=== PATIENT | female | born 2000 | race Caucasian/White ===

== ENCOUNTER 2020-10-12 10:07 | Day surgery (SDC) | payer OTHER ==
[~2020-10-12] VITALS: Ht 167.6 cm; Wt 73.9 kg
[~2020-10-12 10:07] MED LIST: NS 1,000 ML IV ONE; OMEP1CAP73 PO
[2020-10-12] MEDS ORDERED: propofoL 200 MG/20 ML VIAL As Ordered ONE ×2 (10:59→11:52)
[2020-10-12] MEDS ORDERED: LIDOCAINE 2% 100MG/5ML SDV (FOR ANES.) As Ordered ONE (10:59)
[2020-10-12] MEDS ORDERED: fentaNYL 100 MCG/2 ML INJECTION (J3010) As Ordered ONE (10:59)
--- NOTE | 2020-10-12 12:00 | ROOR ---
Patient Name: Shreya Martinez Procedure Date: 10/12/2020 11:48 AM Date of : 2000 Age: 20 Room: [facility] Gender: Female Note Status: Finalized Procedure: Upper Endoscopy + Biopsies Indications: Abdominal pain in the right upper quadrant, Nausea Providers: Mack Tillman MD Referring MD: Malu Vines Requestsonali Provider: Medicines: Monitored Anesthesia Care Complications: No immediate complications. Procedure: Pre-Anesthesia Assessment: - The heart rate, respiratory rate, oxygen saturations, blood pressure, adequacy of pulmonary ventilation, and response to care were monitored throughout the procedure. The Endoscope was introduced through the mouth, and advanced to the second part of duodenum. The upper GI endoscopy was accomplished without difficulty. The patient tolerated the procedure well. Findings: The Z-line was regular and was found 40 cm from the incisors. Multiple biopsies were obtained with cold forceps for evaluation to rule out Rodriguez's Esophagus randomly at the gastroesophageal junction. No other significant abnormalities were identified in a careful examination of the stomach. Biopsies were taken with a cold forceps in the gastric antrum for Helicobacter pylori testing. The exam of the duodenum was otherwise normal. Impression: - Z-line regular, 40 cm from the incisors. - Multiple biopsies were obtained at the gastroesophageal junction. - Biopsies were taken with a cold forceps for Helicobacter pylori testing. - The examination was otherwise normal. Recommendation: - Patient has a contact number available for emergencies. The signs and symptoms of potential delayed complications were discussed with the patient. Return to normal activities tomorrow. Written discharge instructions were provided to the patient. - High fiber diet. - Discharge patient to home. - Follow an antireflux regimen. - Continue present medications. - Await pathology results. - Telephone GI clinic for pathology results in 1 week. - Return to referring physician. - The findings and recommendations were discussed with the patient. Procedure Code(s): --- Professional --- 47846, Esophagogastroduodenoscopy, flexible, transoral; with biopsy, single or multiple Diagnosis Code(s): --- Professional --- R10.11, Right upper quadrant pain R11.0, Nausea CPT copyright 2019 [employer]. All rights reserved. The codes documented in this report are preliminary and upon email specialist review may be revised to meet current compliance requirements. Mack Tillman MD Mack Tillman MD 10/12/2020 12:00:16 PM Electronically signed by Mack Tillman MD Number of Addenda: 0 Note Initiated On: 10/12/2020 11:48 AM Estimated Blood Loss: Estimated blood loss: none.
[2020-10-12 12:22] VITALS: BP 115/68
== END 2020-10-12 12:24 | disposition home or self-care (01) ==
LOC: M OPP 10:07
PROVIDERS: ATTEND Internal Medicine Gastroenterology
DX: K29.70 Gastritis, unspecified, without bleeding (principal); K20.90 Esophagitis, unspecified without bleeding; K21.9 Gastro-esophageal reflux disease without esophagitis; R10.11 Right upper quadrant pain; R11.0 Nausea; Z91.030 Bee allergy status
CPT/HCPCS: 43239; 88305; J3010

== ENCOUNTER → 2022-12-06 | Outpatient (REF) | payer OTHER ==
[~2022-12-06] MED LIST changes: -NS 1,000 ML IV ONE
== END ==
LOC: M PLALAB 14:15
PROVIDERS: ATTEND Nurse Practitioner Family
DX: Z12.4 Encounter for screening for malignant neoplasm of cervix (principal)

== ENCOUNTER → 2023-12-09 | Outpatient (REF) | payer OTHER | LOC: M SFHCWAGY 17:20 | PROVIDERS: ATTEND Nurse Practitioner Family | DX: Z12.4 Encounter for screening for malignant neoplasm of cervix (principal) ==

== ENCOUNTER 2024-11-17 16:05 | Emergency (ER) | payer OTHER ==
[~2024-11-17] VITALS: Ht 170.2 cm; Wt 77.7 kg
[2024-11-17 17:21] LABS: BASO # 0.1 10^3/uL (0.0-0.2); EOS # 0.4 10^3/uL (0.0-0.5); EOS % 4.6 % (0.0-3.0); HEMATOCRIT 34.2 % (36.0-47.0); HEMOGLOBIN 11.7 g/dl (12.0-15.5); LYMPH # 3.3 10^3/uL (1.5-5.0); LYMPH % 35.7 % (24.0-44.0); MEAN CORPUSCULAR HEMOGLOBIN 28.7 pg (27.0-33.0); MEAN CORPUSCULAR HGB CONC 34.2 g/dl (32.0-36.5); MEAN CORPUSCULAR VOLUME 83.8 fl (80.0-96.0); MONO # 0.6 10^3/uL (0.0-0.8); MONO % 6.8 % (2.0-8.0); NEUTROPHILS # 4.7 10^3/uL (1.5-8.5); NEUTROPHILS % 51.6 % (36.0-66.0); PLATELET COUNT, AUTOMATED 311 10^3/uL (150-450); RED BLOOD COUNT 4.08 10^6/uL (4.00-5.40); WHITE BLOOD COUNT 9.2 10^3/uL (4.0-10.0)
[2024-11-17 17:44] LABS: LIPASE 26 U/L (12-53)
[2024-11-17 17:46] LABS: ALBUMIN 4.1 G/DL (3.2-5.2); ALKALINE PHOSPHATASE 72 U/L (35-104); ALT/SGPT 14 U/L (7.0-40); AST/SGOT 12 U/L (<34); BILIRUBIN,DIRECT 0.1 MG/DL (<0.4); BILIRUBIN,TOTAL 0.3 MG/DL (0.3-1.2); BLOOD UREA NITROGEN 10 MG/DL (9-23); CARBON DIOXIDE LEVEL 30 MMOL/L (20-31); CHLORIDE LEVEL 105 MMOL/L (98-107); CREATININE FOR GFR 0.64 MG/DL (0.55-1.30); GLOMERULAR FILTRATION RATE > 60.0 (>60); GLUCOSE, FASTING 88 MG/DL (60-100); POTASSIUM SERUM 3.7 MMOL/L (3.5-5.1); SODIUM LEVEL 140 MMOL/L (136-145); TOTAL PROTEIN 7.5 G/DL (5.7-8.2)
[2024-11-17 19:36] VITALS: BP 144/76; TEMP 97.2; O2SAT 99
[2024-11-17 19:58] LABS: APPEARANCE, URINE CLEAR (CLEAR); BACTERIA, URINE AUTO 1+ (NEGATIVE); BILIRUBIN, URINE AUTO NEGATIVE (NEGATIVE); BLOOD, URINE BLOOD NEGATIVE (NEGATIVE); COLOR, URINE YELLOW (YELLOW); GLUCOSE, URINE (UA) AUTO NEGATIVE (NEGATIVE); KETONE, URINE AUTO TRACE mg/dL (NEGATIVE); LEUKOCYTE ESTERASE, URINE AUTO NEGATIVE (NEGATIVE); NITRITE, URINE AUTO NEGATIVE (NEGATIVE); PROTEIN, URINE AUTO NEGATIVE (NEGATIVE); RBC, URINE AUTO 0 /HPF (0-3); SPECIFIC GRAVITY URINE AUTO 1.011 (1.002-1.035); SQUAMOUS EPITHELIAL CELL UR AU 2 /HPF (0-6); UROBILINOGEN, URINE AUTO 0.2 mg/dL (0.0-2.0); WBC, URINE AUTO 0 /HPF (0-3)
== END 2024-11-17 22:51 | disposition left against medical advice (07) ==
LOC: M ED 16:05
DX: Z53.21 Procedure and treatment not carried out due to patient leaving prior to being seen by health care provider (principal)

== ENCOUNTER → 2025-07-02 | Outpatient (REF) | payer OTHER ==
[2025-07-02 14:37] LABS: Trichomonas vaginalis (AMP) NOT DETECTED (NEGATIVE)
[2025-07-02 15:01] LABS: GC DNA AMPLIFICATION NEGATIVE (NEGATIVE)
[2025-07-08 15:22] LABS: HPV APTIMA Detected (Not Detected)
== END ==
LOC: M PLALAB 11:35
PROVIDERS: ATTEND Nurse Practitioner Family
DX: Z12.4 Encounter for screening for malignant neoplasm of cervix (principal); Z11.3 Encounter for screening for infections with a predominantly sexual mode of transmission; R87.610 Atypical squamous cells of undetermined significance on cytologic smear of cervix (ASC-US)

== ENCOUNTER → 2025-07-30 | Outpatient (REF) | payer OTHER | LOC: M SFHCWAGY 15:35 | PROVIDERS: ATTEND Obstetrics & Gynecology | DX: R87.610 Atypical squamous cells of undetermined significance on cytologic smear of cervix (ASC-US) (principal) ==